=== PATIENT | male | born 1965 | race Caucasian/White ===

== ENCOUNTER → 2016-11-27 | Outpatient (CLI) | payer OTHER ==
[~2016-11-27] MED LIST: ALPR0.25 PO; ESOM40CA PO; HYDR-3240 PO; TRIA340. TP
== END | disposition home or self-care (01) ==
LOC: CFH 14:52
PROVIDERS: ATTEND Registered Nurse
DX: R59.0 Localized enlarged lymph nodes (principal)
CPT/HCPCS: 76536